=== PATIENT | female | born 1970 | race Two or more races ===

== ENCOUNTER 2018-05-11 14:41 | Emergency (ER) | payer MEDICAID ==
[~2018-05-11] VITALS: Ht 167.6 cm; Wt 74.8 kg
[2018-05-11 15:30] VITALS: BP 148/80
[2018-05-11] MEDS ORDERED: diphenhdrAMINE HCL 50 MG/1 ML VL IM ONE (16:00)
== END 2018-05-11 16:27 | disposition home or self-care (01) ==
LOC: ER 14:44
DX: S00.95XA Superficial foreign body of unspecified part of head, initial encounter (principal); V40.5XXA Car driver injured in collision with pedestrian or animal in traffic accident, initial encounter; Y93.89 Activity, other specified; Y99.8 Other external cause status; Y92.89 Other specified places as the place of occurrence of the external cause
CPT/HCPCS: 96372; 99283; J1200